=== PATIENT | male | born 1980 | race Asian ===

== ENCOUNTER 2018-11-25 13:52 | Inpatient (IN) | payer OTHER ==
[2018-11-25] MEDS: KETOROLAC 30 MG INJ IV ×2 (14:26→22:38)
[2018-11-25 14:32] LABS: URINE BLOOD (Dip) POC Negative (NEGATIVE); URINE GLUCOSE (Dip) POC Negative (NEGATIVE); URINE KETONES (Dip) POC Negative (NEGATIVE); URINE LEUKOCYTE EST (Dip) POC Negative (NEGATIVE); URINE NITRITE (Dip) POC Negative (NEGATIVE); URINE TOTAL PROTEIN POC Negative (NEGATIVE)
[2018-11-25 14:33] LABS: ADD MAN DIFF? NO
[2018-11-25 14:34] LABS: WHITE BLOOD COUNT 6.9 10^3/ul (4.8-10.8)
[2018-11-25 14:34] LABS: BASOPHIL # 0.1 10^3/ul (0.0-0.1); BASOPHILS % 1.3 % (0.0-2.0); EOSINOPHILS # 0.2 10^3/ul (0.0-0.5); EOSINOPHILS % 3.2 % (0.0-7.0); HEMATOCRIT 49.4 % (42.0-52.0); HEMOGLOBIN 16.1 g/dl (14.0-18.0); LYMPHOCYTES # 2.2 10^3/ul (0.8-2.9); LYMPHOCYTES % 31.4 % (15.0-51.0); MEAN CORPUSCULAR HEMOGLOBIN 28.9 pg (29.0-33.0); MEAN CORPUSCULAR HGB CONC 32.6 g/dl (32.0-37.0); MEAN CORPUSCULAR VOLUME 88.5 fl (82.0-101.0); MEAN PLATELET VOLUME 10.6 fl (7.4-10.4); MONOCYTE # 0.5 10^3/ul (0.3-0.9); MONOCYTES % 6.7 % (0.0-11.0); NEUTROPHIL # 3.9 10^3/ul (1.6-7.5); PLATELET COUNT 245 10^3/UL (140-415); RED BLOOD COUNT 5.58 10^6/ul (4.70-6.10); RED CELL DISTRIBUTION WIDTH 12.3 % (11.5-14.5)
[2018-11-25 14:37] LABS: URINE BLOOD (Dip) POC Negative (NEGATIVE); URINE GLUCOSE (Dip) POC Negative (NEGATIVE); URINE KETONES (Dip) POC Negative (NEGATIVE); URINE LEUKOCYTE EST (Dip) POC Negative (NEGATIVE); URINE NITRITE (Dip) POC Negative (NEGATIVE); URINE TOTAL PROTEIN POC Negative (NEGATIVE)
[2018-11-25 14:48] LABS: ALANINE AMINOTRANSFERASE 43 IU/L (13-69); ALBUMIN 4.5 g/dl (3.3-4.9); ALBUMIN/GLOBULIN RATIO 1.36; ALKALINE PHOSPHATASE 69 IU/L (42-121); ANION GAP 10 (5-13); ASPARTATE AMINO TRANSFERASE 34 IU/L (15-46); BILIRUBIN,INDIRECT 0.7 mg/dl (0-1.1); BILIRUBIN,TOTAL 0.7 mg/dl (0.2-1.3); BLOOD UREA NITROGEN 12 mg/dl (7-20); CALCIUM 9.3 mg/dl (8.4-10.2); CARBON DIOXIDE 26 mmol/L (21-31); CHLORIDE 105 mmol/L (97-110); CREATININE 0.92 mg/dl (0.61-1.24); Estimated GFR > 60 mL/min (>60); GLUCOSE 131 mg/dl (70-220); LIPASE 128 U/L (23-300); POTASSIUM 3.7 mmol/L (3.5-5.1); SODIUM 141 mmol/L (135-144); TOTAL PROTEIN 7.8 g/dl (6.1-8.1)
[2018-11-25] MEDS: PIPER-TAZO 3.375 GM IV (PMX) 100 ML IVPB (16:24)
[2018-11-25] MEDS: ONDANSETRON 4 MG INJ IV (16:24)
[2018-11-25] MEDS: SOD CHLORIDE 0.9% 1,000 ML IV ×2 (16:24→19:31)
[2018-11-25] MEDS ORDERED: morphine 2 MG INJ IV (17:30)
[2018-11-25] MEDS ORDERED: NACL 0.9% 3 ML SYG IV (17:30)
[2018-11-25] MEDS ORDERED: ACETAMINOPHEN 325 MG TAB PO (17:30)
[2018-11-25] MEDS ORDERED: ONDANSETRON 4 MG INJ IV (17:30)
[2018-11-25] MEDS ORDERED: PIPER-TAZO 3.375 GM IV (PMX) 100 ML IVPB (18:00)
[2018-11-25 18:21] LABS: HEMOGLOBIN A1C 5.9 % (0-5.9)
[2018-11-25] MEDS: HYDROCODONE/APAP (5/325) TAB PO (19:40)
[2018-11-25] MEDS ORDERED: KETOROLAC 30 MG INJ (22:31)
[2018-11-26] MEDS: PIPER-TAZO 3.375 GM IV (PMX) 100 ML IVPB ×6 (01:08→23:46)
[2018-11-26] MEDS: SOD CHLORIDE 0.9% 1,000 ML IV ×2 (03:11→09:14)
[2018-11-26] MEDS: KETOROLAC 30 MG INJ IV ×4 (05:15→21:01)
[2018-11-26 05:24] LABS: ADD MAN DIFF? NO
[2018-11-26 05:28] LABS: WHITE BLOOD COUNT 7.1 10^3/ul (4.8-10.8)
[2018-11-26 05:28] LABS: BASOPHIL # 0.1 10^3/ul (0.0-0.1); BASOPHILS % 1.1 % (0.0-2.0); EOSINOPHILS # 0.2 10^3/ul (0.0-0.5); EOSINOPHILS % 3.2 % (0.0-7.0); HEMATOCRIT 44.9 % (42.0-52.0); HEMOGLOBIN 14.3 g/dl (14.0-18.0); LYMPHOCYTES # 1.9 10^3/ul (0.8-2.9); LYMPHOCYTES % 26.3 % (15.0-51.0); MEAN CORPUSCULAR HEMOGLOBIN 29.1 pg (29.0-33.0); MEAN CORPUSCULAR HGB CONC 31.8 g/dl (32.0-37.0); MEAN CORPUSCULAR VOLUME 91.3 fl (82.0-101.0); MEAN PLATELET VOLUME 10.9 fl (7.4-10.4); MONOCYTE # 0.8 10^3/ul (0.3-0.9); MONOCYTES % 11.2 % (0.0-11.0); NEUTROPHIL # 4.1 10^3/ul (1.6-7.5); NEUTROPHILS % 57.9 % (39.0-77.0); PLATELET COUNT 210 10^3/UL (140-415); RED BLOOD COUNT 4.92 10^6/ul (4.70-6.10); RED CELL DISTRIBUTION WIDTH 12.6 % (11.5-14.5)
[2018-11-26 06:00] LABS: ALANINE AMINOTRANSFERASE 44 IU/L (13-69); ALBUMIN 3.5 g/dl (3.3-4.9); ALBUMIN/GLOBULIN RATIO 1.29; ALKALINE PHOSPHATASE 60 IU/L (42-121); ANION GAP 6 (5-13); ASPARTATE AMINO TRANSFERASE 28 IU/L (15-46); BILIRUBIN,INDIRECT 0.7 mg/dl (0-1.1); BILIRUBIN,TOTAL 0.7 mg/dl (0.2-1.3); BLOOD UREA NITROGEN 14 mg/dl (7-20); CALCIUM 8.6 mg/dl (8.4-10.2); CARBON DIOXIDE 28 mmol/L (21-31); CHLORIDE 109 mmol/L (97-110); CREATININE 1.19 mg/dl (0.61-1.24); Estimated GFR > 60 mL/min (>60); GLUCOSE 92 mg/dl (70-220); POTASSIUM 4.1 mmol/L (3.5-5.1); SODIUM 143 mmol/L (135-144); TOTAL PROTEIN 6.2 g/dl (6.1-8.1)
[2018-11-26 08:31] LABS: CHOLESTEROL 169 mg/dl (100-200); HDL CHOLESTEROL 28 mg/dl (28-63); LDL CHOLESTEROL,CALCULATED 119 mg/dl; TRIGLYCERIDES 108 mg/dl (0-149)
[2018-11-26] MEDS ORDERED: SEVOFLURANE 15 MIN (11:30)
[2018-11-26] MEDS ORDERED: ROCURONIUM 50 MG INJ (11:47)
[2018-11-26] MEDS ORDERED: PROPOFOL 20 ML (11:47)
[2018-11-26] MEDS ORDERED: MIDAZOLAM 1 MG/ML 2 ML INJ (11:47)
[2018-11-26] MEDS ORDERED: FENTAnyl 50 MCG/ML VIAL (11:48)
[2018-11-26] MEDS ORDERED: ROPIVACAINE 0.5 % 30 ML VIAL (11:48)
[2018-11-26] MEDS: BUPIVACAINE 0.5%/EPI (SDV) 30 ML INJ (12:32)
[2018-11-26] MEDS ORDERED: DEXAMETHASONE 4 MG/ML 5 ML INJ (12:50)
[2018-11-26] MEDS ORDERED: ONDANSETRON 4 MG INJ (12:50)
[2018-11-26] MEDS ORDERED: KETOROLAC 30 MG INJ (12:50)
[2018-11-26] MEDS ORDERED: METOCLOPRAMIDE 10 MG INJ (12:50)
[2018-11-26] MEDS ORDERED: SUGAMMADEX SODIUM 200 MG/2 ML VIAL IV (12:50)
[2018-11-26] MEDS ORDERED: ONDANSETRON 4 MG INJ IV ×2 (13:00→14:00)
[2018-11-26] MEDS ORDERED: ACETAMINOPHEN 325 MG TAB PO (13:00)
[2018-11-26] MEDS ORDERED: METOCLOPRAMIDE 10 MG INJ IV ×2 (13:00→14:00)
[2018-11-26] MEDS ORDERED: IBUPROFEN 600 MG TAB PO (13:00)
[2018-11-26] MEDS ORDERED: NALOXONE (0.4 MG/ML) INJ (13:14)
[2018-11-26] MEDS ORDERED: HYDROmorphONE 1 MG/5 ML IV SYRINGE IV (13:49)
[2018-11-26] MEDS ORDERED: LABETALOL HCL 20MG INJ IV (14:00)
[2018-11-26] MEDS ORDERED: FENTAnyl 50 MCG/ML VIAL IV ×2 (14:00)
[2018-11-26] MEDS ORDERED: EPHEDrine 25 MG/5 ML SYG IV (14:00)
[2018-11-26] MEDS: HYDROmorphONE 1 MG/5 ML IV SYRINGE IV ×2 (14:03→14:05)
[2018-11-26] MEDS: D5W-0.45 NACL + KCL 20 MEQ 1,000 ML IV (14:39)
[2018-11-26] MEDS: HYDROCODONE/APAP (5/325) TAB PO (18:31)
[2018-11-26] MEDS: HYDROmorphONE 0.5 MG/0.5 ML SYG IV (23:37)
[2018-11-27] MEDS: D5W-0.45 NACL + KCL 20 MEQ 1,000 ML IV (01:01)
[2018-11-27] MEDS: HYDROCODONE/APAP (5/325) TAB PO (05:32)
[2018-11-27] MEDS: PIPER-TAZO 3.375 GM IV (PMX) 100 ML IVPB ×2 (05:35→11:32)
[2018-11-27 05:53] LABS: ADD MAN DIFF? NO
[2018-11-27 05:59] LABS: BASOPHILS % 0.2 % (0.0-2.0); HEMATOCRIT 44.6 % (42.0-52.0); HEMOGLOBIN 14.6 g/dl (14.0-18.0); LYMPHOCYTES # 1.4 10^3/ul (0.8-2.9); LYMPHOCYTES % 13.7 % (15.0-51.0); MEAN CORPUSCULAR HEMOGLOBIN 29.1 pg (29.0-33.0); MEAN CORPUSCULAR HGB CONC 32.7 g/dl (32.0-37.0); MEAN PLATELET VOLUME 10.8 fl (7.4-10.4); MONOCYTE # 0.7 10^3/ul (0.3-0.9); MONOCYTES % 6.5 % (0.0-11.0); NEUTROPHIL # 8.3 10^3/ul (1.6-7.5); NEUTROPHILS % 79.1 % (39.0-77.0); PLATELET COUNT 256 10^3/UL (140-415); RED BLOOD COUNT 5.01 10^6/ul (4.70-6.10); RED CELL DISTRIBUTION WIDTH 12.3 % (11.5-14.5)
[2018-11-27 05:59] LABS: WHITE BLOOD COUNT 10.5 10^3/ul (4.8-10.8)
[2018-11-27 06:21] LABS: ANION GAP 10 (5-13); BLOOD UREA NITROGEN 12 mg/dl (7-20); CARBON DIOXIDE 24 mmol/L (21-31); CHLORIDE 108 mmol/L (97-110); CREATININE 1.08 mg/dl (0.61-1.24); Estimated GFR > 60 mL/min (>60); GLUCOSE 120 mg/dl (70-220); SODIUM 142 mmol/L (135-144)
[2018-11-27 06:26] LABS: MAGNESIUM 1.9 mg/dl (1.7-2.5)
[2018-11-27] MEDS: KETOROLAC 30 MG INJ IV (08:55)
== END 2018-11-27 16:08 | disposition home or self-care (01) | DRG 343 ==
LOC: FTE 13:52 → PP2 16:40
PROVIDERS: Internal Medicine
PROC: 0DTJ4ZZ Resection of Appendix, Percutaneous Endoscopic Approach (ICD-10-PCS; principal; 2018-11-26 12:11)
DX: K35.890 Other acute appendicitis without perforation or gangrene (principal); K76.0 Fatty (change of) liver, not elsewhere classified; R73.03 Prediabetes
CPT/HCPCS: 36415; 74176; 80048; 80053; 80061; 81003; 83036; 83690; 83735; 84100; 85025; 88304; 96374; 96375; 99285-25